=== PATIENT | male | born 1965 | race Caucasian/White ===

== ENCOUNTER 2017-01-01 10:55 | Inpatient (IN) | payer MEDICARE ==
[~2017-01-01] VITALS: Ht 185.4 cm; Wt 153.8 kg
--- NOTE | ~2017-01-01 | CO ---
ADMIT: 01/01/2017 RM/LOC: 614 [facility] MR#: [id number] [address] [place], [place] [address] [address] [facility] [place] [address] Consultation Report SEX: M AGE: 51 : 1965 DATE OF CONSULTATION: 01/04/2017 ATTENDING PHYSICIAN: Hiram Reeves CONSULTING PHYSICIAN: Clayton Lozano MD HISTORY OF PRESENT ILLNESS: This is a 51-year-old male. In the Inpatient Rehab Unit, patient was seen in consultation for decubitus ulcers. He was admitted on the 24 of December for having been found down. He had severe renal failure, sepsis, pancreatitis, and had recovered from that and transferred for rehab. He yesterday had increasing pain at bilateral gluteal, sacral, and right upper arm wounds. There was significant drainage from each of these today prompting the surgical consultation. Tonight, he does describe pain at these areas. He is alert, oriented, and without other complaint. He has just finished his dinner. PAST MEDICAL HISTORY: Prior DVT with PE, hypertension, morbid obesity, gout. MEDICATIONS: 1. Desyrel. 2. Pepcid. 3. Xarelto. 4. Zestril. 5. Nystatin. 6. Zosyn. P.r.n. medications of: 1. Colace. 2. Hydrocodone. 3. Maalox. 4. Tylenol. 5. Ativan. REVIEW OF SYSTEMS: Does have history of DVT and PE. The decubitus wounds as mentioned above. Remainder of the 10-point review of systems is negative for other recent changes. PHYSICAL EXAMINATION: GENERAL: He is pleasant, alert, oriented, and in no acute distress. VITAL SIGNS: He is afebrile and his vital signs are stable. HEENT: Pupils are equal and reactive to light. Sclerae are anicteric. NECK: Supple without lymphadenopathy. LUNGS: Clear bilaterally. HEART: Regular rate and rhythm. ABDOMEN: Soft and nontender. NEUROLOGIC: Cranial nerves are intact. EXTREMITIES: Examination of the bilateral gluteal areas and sacral area revealed full-thickness necrotic tissue in the decubitus ulcers. For details of the measurements, please see the wound care notes. There is a superficial eschar on the right upper extremity posteriorly, similarly without surrounding ADMIT: 01/01/2017 RM/LOC: 614 [facility] MR#: [id number] [address] [address] [address] [place] [address] Consultation Report SEX: M AGE: 51 : 1965 cellulitis at this area. FAMILY HISTORY: Noncontributory. IMPRESSION: Decubitus ulcers of the sacrum, bilateral buttocks, gluteal creases, and right upper extremity. PLAN: I have recommended sharp debridement of the necrotic tissue with irrigation and possible VAC placement versus gauze dressing application. I discussed the risks of this with Andrea and he does wish to proceed, that will be tentatively scheduled for tomorrow with either Dr. Lu or Dr. Estevez. If that is unable to be accomplished, given schedule issues, we would plan on Wednesday upon my return from [facility]. He understands that as the plan and agrees. Clayton Lozano MD/ osman JOB #: [id number] CC: Hiram Reeves, Attending Physician UNKNOWN, Family Physician
--- NOTE | 2017-01-02 12:34 | CO ---
ADMIT: 01/01/2017 RM/LOC: 614 [facility] MR#: [id number] [address] [address] [place] [address] Consultation SEX: M AGE: 51 : 1965 DATE OF CONSULTATION: 01/01/2017 ATTENDING PHYSICIAN: Hiram Reeves CONSULTING PHYSICIAN: Benito Nayak MD HISTORY OF PRESENT ILLNESS: Thank you for asking me to see Mr. Edmondson. As you know, he is a very interesting 51-year-old man, who was brought to the hospital by EMS on December 25. He was found in a trailer and it looks like he had been down on the ground for a while. EMS was contacted by a neighbor, who had not seen him for a while and was concerned about his welfare. At first, he was not very responsive or a good historian. On admission here, it was found that he had suffered an acute kidney injury, but also had markedly elevated lipase and CPK (around 17,000) as well as an elevated procalcitonin. He was treated with fluids and antibiotics and gradually improved. He was recently transferred to the inpatient rehab unit. One of his home medications was allopurinol and so it was thought that he might have gout. He tells me that Dr. Hoskins gave him that diagnosis about 5 years ago based on soreness and redness in the feet. He does not recall having had a uric acid checked, and definitely does not recall having undergone joint aspiration for crystal analysis. He has several painful red areas on his feet that he is concerned about. He believes he was down on the ground for a day or two, but we do not have any way to confirm that. REVIEW OF SYSTEMS: He says he is able to climb stairs and easily get out of a chair. He has noted that skin rash on the feet. He denies any malar or other rashes specifically psoriasis. He has a history of hypertension, but no known heart problems. RESPIRATORY: No asthma, bronchitis, or pneumonia. GI: No ulcers, diarrhea, constipation, or reflux symptoms. : He denies any stones or dysuria. ENDOCRINE: No history of diabetes or thyroid problems. NEUROLOGIC: No history of seizures or head injury. PSYCHIATRIC: He does see a counselor for depression. HEMATOLOGIC: He has a history of DVT and PE in about 2010. He said he was on Coumadin, but it was difficult to regulate, so now he is on Xarelto. PAST MEDICAL HISTORY: Significant for: 1. DVT and PE. 2. Hypertension. 3. History of gout diagnosed several years ago. MEDICATIONS: 1. Desyrel 50 mg at bedtime. 2. Pepcid 20 mg b.i.d. 3. Xarelto 20 mg daily. 4. Zestril 20 mg a day. 5. Nystatin cream applied to the skin twice a day. 6. Zosyn 3.375 g every 8 hours. ADMIT: 01/01/2017 RM/LOC: 614 [facility] MR#: [id number] [address] [place] [id number] [place], [place] [address] Consultation SEX: M AGE: 51 : 1965 P.R.N. medications 1. Colace. 2. Hydrocodone. 3. Maalox. 4. Tylenol. 5. Ativan. PHYSICAL EXAMINATION: GENERAL: He is a pleasant, white gentleman. He is awake, alert, and a somewhat vague historian at times. He is moderately obese. VITAL SIGNS: Temperature 99.4, pulse 94, respirations 16, blood pressure 129/88, O2 saturation 97%. HEENT: Pupils are equal, round, and reactive to light. Sclerae and conjunctivae are unremarkable. Oral mucosa was pink and moist without lesions. HEART: Regular without murmur or rub. LUNGS: Clear to auscultation anteriorly. ABDOMEN: Soft with really no tenderness. Bowel sounds are present. There was no guarding, rigidity, or rebound. MUSCULOSKELETAL: He could easily abduct the left shoulder, the right could only be raised to about 90 degrees. He was very weak with external rotation on the right as well. The entire right arm in fact appeared quite soft and puffy(doughy) compared with the left. There did not appear to be any definite synovitis in the hands, wrists, ankles, or feet. He has definite pes planus bilaterally. He has an odd rapid tremor of the muscles on the right leg. SKIN: He has multiple small red blanching, slightly raised lesions on the right foot with a single larger lesion on the dorsum of the left foot. These are all quite tender to touch. When we rolled him onto his side, he has very large deep decubitus ulcers on the buttocks and upper thighs especially on the left. LABORATORY DATA: C-reactive protein yesterday was markedly elevated at 3.08. Uric acid was 4.1. Most recent sodium was 134 with potassium 3.6, BUN 11, creatinine 0.9. CBC revealed a white count of 9.8, hemoglobin 12.2, platelets 306,000. Lipase has come down from 8915 to 4128. CPK has come down from 17,500 to 261. MRI of the cervical spine showed an unusual appearance at C2-3 with possible fusion, degenerative changes of C2 through 5 and partial fusion of C5- 6. IMPRESSION: 1. Vascular-appearing rash on both feet. 2. Elevated CPK and CRP. The CK has come down nicely. 3. Decubitus ulcers. 4. Acute kidney injury which also appears to be resolving. 5. Remote history of "gout," on allopurinol. He has not had joint aspiration. Uric acid is normal right now. 6. Elevated lipase. RECOMMENDATIONS: I will check an ANCA screen and will repeat the C-reactive ADMIT: 01/01/2017 RM/LOC: 614 [facility] MR#: [id number] [address] [facility] [place] [id number] [address] [place] [address] Consultation SEX: M AGE: 51 : 1965 protein in the morning. I have asked for a skin biopsy kit to be brought up to the floor, and I will try and get a punch biopsy of one of those lesions on the feet. I have also requested an MRI of that right arm looking for evidence of muscle injury. Thanks for having me see this very interesting man. Benito Nayak MD/ osman JOB #: [id number] CC: Hiram Reeves, Attending Physician UNKNOWN, Family Physician MD Sudarshan Sr MD Sara S Graybill, MD
--- NOTE | 2017-01-05 08:44 | CO ---
ADMIT: 01/01/2017 RM/LOC: 614 [facility] MR#: [id number] [address] [address] [address] [facility] [place] [address] Consultation SEX: M AGE: 51 : 1965 DATE OF CONSULTATION: 01/04/2017 ATTENDING PHYSICIAN: Hiram Reeves CONSULTING PHYSICIAN: Magdy Childers MD CHIEF COMPLAINT: Right shoulder pain. HISTORY OF PRESENT ILLNESS: A 51-year-old male with an abstract history of shoulder not really sure the exact story or trauma to his shoulder, but he was brought in by EMS after being found in his trailer for what people think maybe a day or two before neighbors had found him. In terms of the shoulder, the patient states he is not really sure what happened. Does not remember anything specifically happening to the shoulder or falling it on a certain way. He just kind of remembers waking up and not being able to move it as well, having some pain just generalized, it is around the shoulder. He really kind of denies any sort of shoulder injury in the past, and right now, he is complaining of some mild generalized soreness in the shoulder, kind of radiating down to his hand and some generalized weakness with his right upper extremity compared to the contralateral limb, really not having any other orthopedic or musculoskeletal complaints at this time. PAST MEDICAL HISTORY: Significant for: 1. DVT and PE. 2. Hypertension. 3. History of gout. MEDICATIONS: See prior consultation report or nurse MAR. PHYSICAL EXAMINATION: GENERAL: This is a healthy appearing male, alert, oriented, appears to be in no apparent distress, sitting in the bed comfortably. MUSCULOSKELETAL: The patient can actively forward flex the right shoulder at around 95 to 100 degrees. I can passively get him to around 150 to 160 degrees before some impingement pain start happening, but really no strength from his behalf from the 90 to 150 degrees. Very considerably weaker in the right upper extremity in terms of external rotation, internal rotation, forward flexion, extension and abduction of the shoulder compared to the contralateral shoulder. Does have some mild tenderness to palpation kind of along the lateral aspect of the distal clavicle area and has good full range of motion of the elbow. The patient does have a large and open wound on the inside of his biceps belly area. Really, no open wounds or abrasions, any rales noted on the upper extremity. IMAGING: X-rays of the right upper extremity did not show any acute bony abnormalities, fracture, or dislocations. There is narrowing of the acromiohumeral interval, possible some high-riding humeral head. It could be part of the positioning of the patient as well or rotator cuff pathology. There is some brief significant acromioclavicular degenerative joint disease ADMIT: 01/01/2017 RM/LOC: 614 [facility] MR#: [id number] [facility] [address] [address] [place] [address] Consultation SEX: M AGE: 51 : 1965 as well. MRI of the upper extremity just revealed some swelling, edema, contusion stuff around the supraspinatus, infraspinatus muscles, which we could not rule out a rotator cuff tear with that. They also noticed some edema that was progressive distally into the forearm as well. ASSESSMENT: Right upper extremity injury. Not able to rule out rotator cuff tear. Due to the weakness, there could be some sort of conduction issue as well neurovascularly freeman proximal that is causing him to have some weakness in his hand as well. Some obvious degenerative changes at the glenohumeral and acromioclavicular joints as well. PLAN: Right now, we are going to handle this patient nonsurgically and conservatively. I did give him an injection of local with some steroid and to help try to bring down some of the generalized swelling and inflammation that is in without the upper extremity hoping to help relieve some of the symptoms he is having, put more of a Band-Aid on the issue rather than fixing the real issue. We will continue to watch him over the next few days. We will probably have him come over and see us in our clinic outpatient week and week and half and we can kind of discuss and get things rolling on how we want to manage and figure out what we are going to do with the shoulder injury and see if things have calmed down at that point in time. I want to thank you for allowing us to take part in care of this patient. KENDELL Turner / Magdy Childers MD / osman JOB #: [id number] CC: Hiram Reeves, Attending Physician UNKNOWN, Family Physician
--- NOTE | 2017-01-05 13:26 | NUR ---
JOHN VELAZQUEZ CNA NOTED THIS MORNING THAT PATIENT WAS WEARING GLASSES WITH ONLY ONE ARM ATTACHED. THE OTHER ARM OF THE GLASSES WAS FOUND, BUT APPEARS TO BE BROKEN. GLASSES AND ARM PLACED IN ZIPLOCK BAG AND TRASFERRED TO ROOM 525 ALONG WITH THE PATIENT'S OTHER POSSESSIONS.
== END 2017-01-05 10:40 | disposition short-term general hospital (02) | DRG 71 ==
LOC: 6IRU 11:15
PROVIDERS: ADMIT Physical Medicine & Rehabilitation
PROC: 0HBMXZX Excision of Right Foot Skin, External Approach, Diagnostic (ICD-10-PCS; principal; 2017-01-02)
DX: G93.41 Metabolic encephalopathy (principal); N17.9 Acute kidney failure, unspecified; L89.150 Pressure ulcer of sacral region, unstageable; Z68.41 Body mass index [BMI] 40.0-44.9, adult; I10 Essential (primary) hypertension; L89.320 Pressure ulcer of left buttock, unstageable; L89.310 Pressure ulcer of right buttock, unstageable; L89.620 Pressure ulcer of left heel, unstageable; L89.610 Pressure ulcer of right heel, unstageable; L89.890 Pressure ulcer of other site, unstageable; M54.5 Low back pain; G89.4 Chronic pain syndrome; L30.4 Erythema intertrigo; E66.01 Morbid (severe) obesity due to excess calories; G47.00 Insomnia, unspecified; M19.011 Primary osteoarthritis, right shoulder; M79.671 Pain in right foot; R23.8 Other skin changes; R60.9 Edema, unspecified; M79.672 Pain in left foot; S46.011A Strain of muscle(s) and tendon(s) of the rotator cuff of right shoulder, initial encounter; W19.XXXA Unspecified fall, initial encounter; Z59.0 Homelessness; Z86.718 Personal history of other venous thrombosis and embolism; Z87.891 Personal history of nicotine dependence; Z79.01 Long term (current) use of anticoagulants; Z86.711 Personal history of pulmonary embolism